=== PATIENT | male | born 1995 | race Caucasian/White ===

== ENCOUNTER → 2016-11-19 | Day surgery (SDC) | payer BC ==
[2016-11-03 14:26] VITALS: Ht 185.4 cm; Wt 86.4 kg
[~2016-11-19] VITALS: Ht 185.4 cm; Wt 86.4 kg
[~2016-11-19] MED LIST: ATROPINE SULFATE 0.1 MG/ML 5ML SYR IV PRN; BUPIVACAINE/EPINEPHRINE 0.25% 1:200,000 30 ML VIAL ONE; BUPR100T8 PO; CEFAZOLIN 2000 MG/60 ML D5W IV SCH; DEXAMETHASONE SOD INJ 4 MG/ML VIAL ONE; EpHEDrine SULFATE INJ 50 MG/ML AMP IV PRN; EpINEphrine INJ 1MG/ML AMP 1 MG/ML AMP ONE; FENTANYL CITRATE INJ 50 MCG/1 ML 2 ML VIAL ONE; HYDROmorphone INJ 2 MG/ML SYR/VIAL IV PRN; KETO10TA PO; LACTATED RINGER'S 1000ML 1,000 ML IV SCH; LIDOCAINE HCL 1% MPF 2 ML VIAL ONE; LIDOCAINE HCL 2% 2 ML VIAL (20MG/ML) ONE; MIDAZOLAM HCL 1 MG/ML 2ML VIAL ONE; ONDANSETRON INJ 2 MG/ML 2 ML VIAL IV PRN; ONDANSETRON INJ 2 MG/ML 2 ML VIAL ONE; OXYC-57 PO; OXYCODONE/ACETAMINOPHEN 5-325 TAB PO PRN; PHENYLEPHRINE 100MCG/ML 5ML SYR IV PRN; PROPOFOL IV EMULSION 10 MG/ML 20 ML VIAL IV ONE; ROPIVACAINE 0.5% 5 MG/ML 30 ML VIAL ONE; SERT1TAB92 PO; SODIUM CHLORIDE 0.9% 1000ML 1,000 ML IV SCH
--- NOTE | 2016-11-19 11:11 | History & Physical Bridge - [place] ---
H&P Re-Evaluation Bridge Note: I have examined the patient, reviewed the History & Physical and in the interval since the performance of the History & Physical I have noted the following changes of clinical significance: No changes noted
--- NOTE | 2016-11-19 14:51 | Discharge Instructions-SurgCtr ---
Discharge Instructions Date of Service Nov 19, 2016. Visit Reason for Visit: Right Shoulder Dislocation Of Ac Joint; Pain Discharge Discharge Diagnosis / Problem: SAME ABOVE Discharge Goals Goal(s): Decrease discomfort, Improve function Activity Recommendations Activity Limitations: as noted below Lifting Limitations: until after follow-up appointment Shower/Bathe: may shower/bathe in 3 days Anesthesia . Post Anesthesia Instructions: If you have had General Anesthesia or IV Sedation: * Do not drive today. * Resume driving when surgeon permits. * Do not make important decisions or sign legal documents today. * Call surgeon for: 1. Temperature elevations greater than 101 degrees F. 2. Uncontrollable pain. 3. Excessive bleeding. 4. Persistent nausea and vomiting. 5. Medication intolerance (nausea, vomiting or rash). * For nausea and vomiting use only clear liquids such as: tea, soda, bouillon until nausea subsides, then gradually increase diet as tolerated. * If you have any concerns or questions, call your surgeon's office. If physician is unavailable and it is an emergency, call 911 or go to the nearest emergency room. . Instructions / Follow-Up Instructions / Follow-Up MEDICATIONS: * Resume previous medications unless instructed otherwise by your surgeon. * Always take pain medication on a full stomach or with food to avoid upset stomach. * Do not drink alcohol or drive while taking narcotics. * Ibuprofen or Tylenol may be taken if narcotic not needed. SPECIAL CARE INSTRUCTIONS: __ None _X_ Keep extremity elevated and iced x 48 hours; apply ice 20-30 minutes 8-10 times/day. May remove at night. _X_ Sling (MAY REMOVE AFTER 48 HOURS ONLY TO SHOWER) _X_24 hrs/day __ Remove at night __ Shoulder Immobilizer __ 24 hrs/day __ Remove at night _X_ Dressing __ Maintain until seen in office, may shower with plastic over site _X_ Remove dressings in 48-72 hours and then may shower _X_ Cover incisions with band-aids after showering _X_ Do not remove steri-strips Call physician if chills or temperature rises above 102 degrees or pain unrelieved by prescribed pain medications at . . Diet Recommendations Home Diet: no limitations Fluid Restriction: None Procedures Procedures Performed: Right Shoulder Arthroscopic Acromioclavicular Joint Reconstruction Pending Studies Studies pending at discharge: no Work Instructions Lifting Limitations: NO LIFTING WITH RIGHT ARM School Instructions Return To School: 3 days (WHEN PAIN IS CONTROLLED ) Medical Emergencies . Who to Call and When: Medical Emergencies: If at any time you feel your situation is an emergency, please call 911 immediately. . Non-Emergent Contact Non-Emergency issues call your: Primary Care Provider Call Non-Emergent contact if: you have a fever, temperature is above 101.5 . . "Provider Documentation" section prepared by Rolly Khan. .
--- NOTE | 2016-11-19 15:23 | [facility] Post Operative Brief Note ---
Immediate Operative Summary Operative Date Nov 19, 2016. Pre-Operative Diagnosis Right shoulder acromioclavicular joint separation Post-Operative Diagnosis Same as pre-op Procedure(s) Performed Right Shoulder Arthroscopic Acromioclavicular Joint Reconstruction Surgeon Food Service Steward Surgeon(s) Stan Khan PA-C Estimated Blood Loss 20ML Findings as above Specimens None Complication(s) None Disposition Recovery Room / PACU
[2016-11-19 15:25] VITALS: TEMP 36.7
--- NOTE | 2016-11-19 15:43 | Anesthesia Progress Nt - [facility] ---
Anesthesia Post Op Note Date & Time Nov 19, 2016 at 15:43 Vital Signs Pain Intensity: 2 Vital Signs Past 12 Hours Date Time Temp Pulse Resp B/P (MAP) Pulse Ox O2 Delivery O2 Flow Rate FiO2 11/19/16 15:25 36.7 83 16 131/88 (102) 97 Room Air 11/19/16 15:17 36.8 11/19/16 15:16 135/80 (94) 11/19/16 15:13 90 19 11/19/16 15:13 87 19 95 11/19/16 15:11 142/78 (92) 11/19/16 15:08 92 24 11/19/16 15:08 93 24 95 11/19/16 15:07 Room Air 11/19/16 15:06 100 17 114/86 (96) 98 11/19/16 15:06 100 17 11/19/16 15:01 96 20 11/19/16 15:01 90 20 129/64 (81) 97 11/19/16 14:56 85 21 11/19/16 14:56 85 21 136/69 (85) 98 11/19/16 14:54 123/81 (99) 11/19/16 14:51 36.8 93 20 123/81 98 Diffusion Mask 5 11/19/16 12:12 84 28 100 11/19/16 12:12 81 11/19/16 12:11 129/74 11/19/16 12:07 83 11/19/16 12:07 78 37 100 11/19/16 12:06 138/87 11/19/16 12:02 81 23 100 11/19/16 12:02 81 11/19/16 12:01 131/81 11/19/16 12:00 86 11/19/16 12:00 87 21 100 11/19/16 11:56 145/83 11/19/16 11:55 73 11/19/16 11:55 75 20 100 11/19/16 11:51 139/86 11/19/16 11:50 73 21 100 11/19/16 11:50 73 11/19/16 11:49 146/95 11/19/16 11:45 81 0 11/19/16 11:40 80 0 11/19/16 11:35 81 0 11/19/16 11:30 82 0 11/19/16 09:38 36.8 69 16 134/91 (105) 97 Room Air Notes Mental Status: alert / awake / arousable, participated in evaluation Pt Amnestic to Procedure: Yes Nausea / Vomiting: adequately controlled Pain: adequately controlled Airway Patency, RR, SpO2: stable & adequate BP & HR: stable & adequate Hydration State: stable & adequate Anesthetic Complications: no major complications apparent
[2016-11-19 15:46] VITALS: BP 139/86; PULSE 88; O2SAT 98
--- NOTE | 2016-11-20 07:42 | OPERATIVE REPORT ---
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 POSTOPERATIVE DIAGNOSIS: Chronic right acromioclavicular joint separation. PROCEDURE: Right shoulder diagnostic arthroscopy with limited debridement, chronic AC joint reconstruction with Dog Bone Button technique as well was internal brace and capsular plication. SURGEON: Dr. Luigi Mccormack. IT FIELD TECHNICIAN: Rolly Khan PA-C, whose assistance was necessary for positioning of the arm and helping with arthroscopic instrumentation. ANESTHESIA: General with a right interscalene nerve block. COMPLICATIONS: None. CONDITION: Stable to PACU. INDICATIONS: Dalton is a pleasant 21-year-old male who sustained a high grade 3 almost grade 5 AC joint separation 4 years ago. He was treated conservatively at that time. Unfortunately, he has always had pain in that shoulder. Whenever he reaches across his body, the scapula goes underneath the clavicle. It affects his daily life and he elected to undergo fixation. On 11/19/2016, he arrived at [facility] for the above procedure. PROCEDURE IN DETAIL: He was seen in the preoperative holding area and the operative extremity was identified and signed. He was given preoperative antibiotics and a right interscalene nerve block. He was taken back to the operating room, laid on the table in supine position and put under general anesthesia. He was then put into the beachchair position. The right shoulder was prepped and draped in sterile fashion. Time-out was done and the patient and operative extremity properly identified. A scope was introduced in the posterior portal. Diagnostic arthroscopy showed no cartilage damage to the humeral head or the glenoid. The rotator cuff was intact. The biceps tendon went through a normal size biceps michael mechanism. There was no labral tearing. An anterior portal was made and the rotator interval was opened up, and the undersurface of the coracoid was cleaned out. A small 1.5 cm incision was made over the clavicle about 3.5 cm proximal to the AC joint. Dissection was taken down to the clavicle. An Arthrex guide was then placed from the clavicle to the undersurface of the coracoid. A 2.4 mm guide pin was then placed through the clavicle and out through the base of the coracoid. The drill was cannulated and a Nitinol wire was placed down the cannulated drill and a FiberLink was passed retrograde up the clavicle. The Arthrex Dog Bone Button was then passed in a retrograde fashion. The button was kept in the appropriate orientation on the undersurface of the coracoid under direct visualization from the arthroscope. An additional Dog Bone Button was then placed on the clavicular side. The tails were then tied. A single fluoroscopic image was taken and I was very happy with the reduction. The final FiberTape sutures were then tied. A palmaris longus graft was then placed around the coracoid arthroscopically and then around the clavicle. This was tied and sutured together with #2 FiberWire suture. This gave an additional biologic fixation. Attention was then turned to an internal brace. An anterior incision was made over the distal clavicle. Dissection was taken down through the fascia and the capsule was exposed. A 4.75 mm BioComposite SwiveLock suture anchor was placed 1.5 cm proximal to the AC joint on the clavicle. The FiberTapes were then brought down to a 3.5 mm BioComposite SwiveLock suture anchor which was placed on the acromial side. Care was taken not to over-tension the tapes. The capsule was then plicated with #2 FiberWire sutures and the FiberTapes from the internal brace were incorporated into the plication. This gave excellent fixation. The deep layers were closed with 0 Vicryl and skin was closed with 3-0 Vicryl and nylon suture. He was then placed in a soft dressing, extubated, transferred to a [facility] and taken to the postanesthesia care unit in stable condition. He tolerated the procedure well. I attest to the content of the Intraoperative Record and any orders documented therein. Any exception s are noted below.
== END | disposition home or self-care (01) ==
LOC: X.SURG 08:52
PROVIDERS: ATTEND Orthopaedic Surgery
DX: M24.411 Recurrent dislocation, right shoulder (principal); F41.9 Anxiety disorder, unspecified; Z79.899 Other long term (current) drug therapy